=== PATIENT | female | born 1960 | race Caucasian/White ===

== ENCOUNTER 2023-01-18 10:37 | Emergency (ER) | payer OTHER ==
[~2023-01-18] VITALS: Ht 162.6 cm; Wt 99.4 kg
[2023-01-18 11:00] VITALS: BP 120/80; PULSE 84; RESP 20; TEMP 98; O2SAT 98
[2023-01-18] MEDS ORDERED: KETOROLAC 30 MG/ML VIAL IM ONE (11:55)
[2023-01-18 12:23] LABS: BASOPHILS % (AUTO) 0.3 % (0.0-2.0); EOSINOPHILS % (AUTO) 0.2 % (0.0-4.0); HEMATOCRIT 40.8 % (36-48); LYMPHOCYTES # (AUTO) 1.4 K/uL (2.5-16.5); LYMPHOCYTES % (AUTO) 17.5 % (20.5-51.1); MEAN CORPUSCULAR HEMOGLOBIN 31 pg (27-31); MEAN CORPUSCULAR HGB CONC 34 g/dL (33-37); MONOCYTES # (AUTO) 0.2 K/uL (0.8-1.0); MONOCYTES % (AUTO) 2.2 % (1.7-9.3); NEUTROPHILS # (AUTO) 6.5 K/uL (1.8-7.7); NEUTROPHILS % (AUTO) 79.8 % (42.2-75.2); PLATELET COUNT (AUTO) 224 K/uL (140-450); RED BLOOD CELL COUNT(AUTO) 4.48 MIL/uL (4.20-5.40); RED CELL DISTRIBUTION WIDTH 13.5 % (11.6-13.7); WHITE BLOOD COUNT (AUTO) 8.1 K/uL (4.8-10.8)
[2023-01-18 12:32] LABS: ANION GAP 13.6 (8-16); CALCIUM 9.2 mg/dL (8.5-10.1); CARBON DIOXIDE 28.1 mmol/L (21-32); CREATININE 0.8 mg/dL (0.6-1.3); POTASSIUM 3.7 mmol/L (3.5-5.1)
[2023-01-18 12:37] LABS: TOTAL BILIRUBIN 0.5 mg/dL (0.0-1.0)
[2023-01-18] MEDS ORDERED: KETOROLAC 30 MG/ML VIAL ONE (13:58)
[2023-01-18] MEDS ORDERED: IBUP-2213 PO (15:45)
== END 2023-01-18 15:51 | disposition home or self-care (01) ==
LOC: MED 10:37
DX: R06.02 Shortness of breath (principal); M25.562 Pain in left knee; M17.12 Unilateral primary osteoarthritis, left knee; Z79.899 Other long term (current) drug therapy
CPT/HCPCS: 36415; 71045; 73562; 80053; 83880; 84484; 85025; 93005; 96372; 99285; J1885